=== PATIENT | female | born 1955 | race Caucasian/White ===

== ENCOUNTER 2019-03-23 23:46 | Emergency (ER) | payer MEDICARE, OTHER ==
[~2019-03-23] VITALS: Ht 149.9 cm; Wt 81.6 kg
[2019-03-23 23:56] VITALS: BP 141/91
--- NOTE | 2019-03-23 23:59 | NUR ---
PT AMBULATED TO BED 6. PROVIDED WITH URINE CUP.
--- NOTE | 2019-03-24 00:05 | NUR ---
64/F PRESENTS TO ED WITH FAMILY/FRIEND, C/O L LOWER BACK PAIN, X2 DAYS. NO BRUISING, SWELLING OR ABNORMALITY NOTED ON L LOWER BACK. 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 PT DENIES FEVER, CP, SOB, N/V/D, CONSTIPATION OR DYSURIA. AOX4, AMBULATORY, SKIN NORMAL WARM AND DRY, RR EVEN AND UNLABORED. HX HLD RX SIMVASTATIN OTC EXCEDRIN, SALON PAS PATCH
--- NOTE | 2019-03-24 00:47 | NUR ---
DR. GORDON BEDSIDE EVALUATING PT
[2019-03-24] MEDS ORDERED: KETOROLAC 60 MG/2 ML VIAL IM ONE (00:55)
[2019-03-24 01:33] VITALS: BP 144/79
== END 2019-03-24 01:33 | disposition home or self-care (01) ==
LOC: MED 23:46
DX: M54.5 Low back pain (principal); Z90.49 Acquired absence of other specified parts of digestive tract; Z88.5 Allergy status to narcotic agent
CPT/HCPCS: 81002; 96372; 99283; J1885